=== PATIENT | female | born 1950 | race Caucasian/White ===

== ENCOUNTER → 2018-03-13 | Outpatient (CLI) | payer MEDICARE, OTHER ==
[~2018-03-13] MED LIST: ACET500 PO; ALBU90OI INH; ANORO ELLIPTA1 EACH INH; ASPI325 PO; BACL10 PO; Desyrel150 MG PO; Hair, Skin & N1 EACH PO; ROXICODONE5 MG PO; VENLAFAXINE HC150 MG PO
== END ==
LOC: LAB SHORT 17:40 → LAB EV 17:40
DX: N39.0 Urinary tract infection, site not specified (principal)
CPT/HCPCS: 87077; 87086; 87186

== ENCOUNTER → 2018-04-26 | Outpatient (CLI) | payer MEDICARE, OTHER | END | disposition home or self-care (01) | LOC: LAB SHORT 13:45 → LAB 13:45 | DX: L60.9 Nail disorder, unspecified (principal) | CPT/HCPCS: 87102 ==

== ENCOUNTER 2019-03-14 07:35 | Day surgery (SDC) | payer MEDICARE, OTHER ==
[~2019-03-14] VITALS: Ht 165.1 cm; Wt 53.2 kg
--- NOTE | 2019-03-14 08:39 | NUR ---
0810 Ambulatory in Day Surgery Surgical site prepped with 2% Chlorhexidine cloth wipe. History, Chart, Medications and Allergies reviewed before start of procedure.Lungs clear T/O to Auscultation. DECREASED BS L LOWER LUNG CURRENT EVERY DAY SMOKER, 1/2PPD, Patient confirms NPO status and agrees with scheduled surgery. Pre-Op teaching done. Pt verbalizes understanding. Patient reports completing Chlorhexadine shower X2 prior to admission to hospital.
--- NOTE | 2019-03-14 08:56 | NUR ---
MICHELLEN TO BILATERAL NARES.
--- NOTE | 2019-03-14 09:53 | NUR ---
UP TO BATHROOM TO VOID.
--- NOTE | 2019-03-14 16:31 | NUR ---
PERMISSION FOR CARE Patient gave nursing support worker permission to assist RN in providing care on 03.15.2019 from [phone]. Nicole Boles
--- NOTE | 2019-03-14 18:38 | NUR ---
SHIFT SUMMARY PT WAS VERY DROWSY POST OP, ALLOWED TO REST UNTIL DINNER. UP TO BATHROOM AND CHAIR FOR DINNER. PAIN WELL MANAGED. TOELRATING DIET. AQUACEL HAS NO DRAINAGE OR SHADOWING.
[2019-03-15 04:39] LABS: BASOPHILS ABSOLUTE AUTO 0.02 K/mm3 (0.00-0.23); BASOPHILS PERCENT AUTO 0 % (0-2); EOSINOPHILS ABSOLUTE AUTO 0.03 K/mm3 (0.00-0.68); EOSINOPHILS PERCENT AUTO 0 % (0-6); Hematocrit 39.7 % (33.0-51.0); Hemoglobin 13.3 g/dL (11.5-16.0); IMMATURE GRAN ABSOLUTE AUTO 0.05 K/mm3 (0.00-0.10); IMMATURE GRAN PERCENT AUTO 1 % (0-1); LYMPHOCYTES ABSOLUTE AUTO 1.98 K/mm3 (0.84-5.20); LYMPHOCYTES PERCENT AUTO 22 % (21-46); MONOCYTES PERCENT AUTO 9 % (4-13); Mean Corpuscular HGB 32.9 pg (26.0-34.0); Mean Corpuscular HGB Conc 33.5 g/dL (31.5-36.5); Mean Corpuscular Volume 98 fL (80-100); Mean Platelet Volume 8.9 fL (9.1-12.4); NEUTROPHILS ABSOLUTE AUTO 6.28 K/mm3 (1.96-9.15); NEUTROPHILS PERCENT AUTO 69 % (41-73); Platelet Count 262 K/mm3 (150-400); RDW Coefficient Variation 12.1 % (11.7-14.2); RDW Standard Deviation 44.2 fL (35.1-46.3); Red Blood Cell Count 4.04 M/mm3 (3.80-5.20); White Blood Cell Count 9.16 K/mm3 (4.00-11.30)
[2019-03-15 04:55] LABS: Anion Gap 5 mmol/L (6-16); Blood Urea Nitrogen 12 mg/dL (8-24); Bun/Creatinine Ratio 15.9 (12.0-20.0); CO2, Blood 28 mmol/L (21-32); Calcium, Blood 8.9 mg/dL (8.5-10.1); Chloride, Blood 107 mmol/L (98-108); Creatinine, Blood 0.76 mg/dL (0.40-1.00); Glomerular Filtration Rate >60 (60-); Glucose, Blood 104 mg/dL (70-99); Magnesium, Blood 1.9 mg/dL (1.6-2.4); Potassium, Blood 4.4 mmol/L (3.5-5.5); Sodium, Blood 140 mmol/L (136-145)
--- NOTE | 2019-03-15 06:18 | NUR ---
SHIFT SUMMARY PT A&O X4 T/O SHIFT. POD#1 L TKA; DRESSING CDI T/O SHIFT. PT DENIES N/T IN EXT. PAIN MANAGED PER EMAR. PAIN MANAGED PER EMAR. UP WITH FWW AND SBA TO TOILET AND AMBULATED IN [place]. CRYOTHERAPY TO L KNEE T/O SHIFT. SCD'S TO BLE'S. CALL LIGHT IN REACH; PT DEMONSTRATES USE.
[2019-03-15] MEDS ORDERED: ACETAMINOPHEN500 MG PO ×2 (09:49)
[2019-03-15] MEDS ORDERED: Ecotrin325 MG PO ×2 (09:50)
[2019-03-15] MEDS ORDERED: ROXICODONE5 MG PO ×2 (09:50)
--- NOTE | 2019-03-15 10:33 | NUR ---
DISCHARGE PT CLEARED THERAPY, PAIN WELL MANAGED, TOLERATING DIET, SCRIPT & DRSGS GIVEN, ICE MACHINE SENT WITH FAMILY.
== END 2019-03-15 10:35 | disposition home or self-care (01) ==
LOC: ORSCMMR 07:35 → ORD 10:30 → SURS 13:30 → ORSCMMR 13:30 → SURS 03-15 10:35
PROVIDERS: Orthopaedic Surgery
PROC: 0SRD0J9 Replacement of Left Knee Joint with Synthetic Substitute, Cemented, Open Approach (ICD-10-PCS; principal; 2019-03-14 10:30)
DX: M17.12 Unilateral primary osteoarthritis, left knee (principal); J44.9 Chronic obstructive pulmonary disease, unspecified; F17.210 Nicotine dependence, cigarettes, uncomplicated; Z79.899 Other long term (current) drug therapy
CPT/HCPCS: 36415; 73560-LT; 80048; 83735; 85025; 88300; 94760; 97110; 97161; 97530; C1713; C1776; J0171; J0690; J0735; J1170; J1885; J2250; J2370; J2405; J2765; J2795; J3010; J7120

== ENCOUNTER 2019-03-15 20:58 | Emergency (ER) | payer MEDICARE, OTHER ==
[~2019-03-15] VITALS: Ht 167.6 cm; Wt 54.0 kg
[~2019-03-15 20:58] MED LIST changes: +ACETAMINOPHEN500 MG PO; +Ecotrin325 MG PO
[2019-03-15 21:36] LABS: BASOPHILS ABSOLUTE AUTO 0.04 K/mm3 (0.00-0.23); BASOPHILS PERCENT AUTO 0 % (0-2); EOSINOPHILS ABSOLUTE AUTO 0.08 K/mm3 (0.00-0.68); EOSINOPHILS PERCENT AUTO 1 % (0-6); Hematocrit 37.9 % (33.0-51.0); Hemoglobin 12.9 g/dL (11.5-16.0); IMMATURE GRAN ABSOLUTE AUTO 0.02 K/mm3 (0.00-0.10); IMMATURE GRAN PERCENT AUTO 0 % (0-1); LYMPHOCYTES ABSOLUTE AUTO 2.47 K/mm3 (0.84-5.20); LYMPHOCYTES PERCENT AUTO 24 % (21-46); MONOCYTES ABSOLUTE AUTO 0.81 K/mm3 (0.16-1.47); MONOCYTES PERCENT AUTO 8 % (4-13); Mean Corpuscular HGB 32.7 pg (26.0-34.0); Mean Corpuscular Volume 96 fL (80-100); Mean Platelet Volume 9.3 fL (9.1-12.4); NEUTROPHILS ABSOLUTE AUTO 6.74 K/mm3 (1.96-9.15); NEUTROPHILS PERCENT AUTO 66 % (41-73); Platelet Count 291 K/mm3 (150-400); RDW Coefficient Variation 11.9 % (11.7-14.2); RDW Standard Deviation 41.8 fL (35.1-46.3); Red Blood Cell Count 3.95 M/mm3 (3.80-5.20); White Blood Cell Count 10.16 K/mm3 (4.00-11.30)
[2019-03-15 21:54] LABS: Alanine Aminotransfer (ALT/SGP 13 U/L (12-78); Albumin, Blood 3.2 g/dL (3.4-5.0); Albumin/Globulin Ratio 1.1 (0.8-1.8); Alk Phos 80 U/L (50-136); Anion Gap 6 mmol/L (6-16); Aspartate Aminotrans (AST/SGOT 20 U/L (12-37); Bilirubin, Total 0.5 mg/dL (0.1-1.0); Blood Urea Nitrogen 16 mg/dL (8-24); Bun/Creatinine Ratio 19.1 (12.0-20.0); CO2, Blood 28 mmol/L (21-32); Calcium, Blood 9.3 mg/dL (8.5-10.1); Chloride, Blood 101 mmol/L (98-108); Creatinine, Blood 0.84 mg/dL (0.40-1.00); Glomerular Filtration Rate >60 (60-); Glucose, Blood 134 mg/dL (70-99); Potassium, Blood 3.8 mmol/L (3.5-5.5); Sodium, Blood 135 mmol/L (136-145); Total Protein, Blood 6.2 g/dL (6.4-8.2)
== END 2019-03-16 00:02 | disposition home or self-care (01) ==
LOC: ER 20:58
PROVIDERS: Physician Assistant
DX: G89.18 Other acute postprocedural pain (principal); M25.562 Pain in left knee; F32.9 Major depressive disorder, single episode, unspecified; G89.29 Other chronic pain; M19.90 Unspecified osteoarthritis, unspecified site; F17.200 Nicotine dependence, unspecified, uncomplicated; Z88.8 Allergy status to other drugs, medicaments and biological substances; Z79.899 Other long term (current) drug therapy; Z96.652 Presence of left artificial knee joint
CPT/HCPCS: 36415; 80053; 83605; 84484; 85025; 93005; 93010; 96361; 96374; 96375; 99283-25; A9270-GY; J1885; J2270; J2405; J3010; J7030

== ENCOUNTER 2020-01-13 18:05 | Inpatient (IN) | payer MEDICARE, OTHER ==
[~2020-01-13] VITALS: Ht 167.6 cm; Wt 57.1 kg
[~2020-01-13 18:05] MED LIST changes: -ALBU90OI INH; -ANORO ELLIPTA1 EACH INH; -BACL10 PO; -Desyrel150 MG PO; -Hair, Skin & N1 EACH PO; +THERA1 EACH PO; -VENLAFAXINE HC150 MG PO
[2020-01-13] MEDS ORDERED: ANORO ELLIPTA1 EACH INH (21:15)
[2020-01-13] MEDS ORDERED: VENLAFAXINE HC150 MG PO (21:15)
[2020-01-13] MEDS ORDERED: LATA.005SO BOTHEYES (21:15)
[2020-01-13] MEDS ORDERED: TRAZ100 PO (21:15)
[2020-01-13] MEDS ORDERED: ALBU90OI INH (21:15)
[2020-01-13] MEDS ORDERED: BACL10 PO (21:15)
[2020-01-13] MEDS ORDERED: Ocuflox5 ML LEFTEYE (21:16)
[2020-01-13] MEDS ORDERED: KETOROLAC TROMET5 ML LEFTEYE (21:16)
[2020-01-13] MEDS ORDERED: PRED FORTE5 M1 LEFTEYE (21:17)
[2020-01-13] MEDS ORDERED: SODCHL3.5O LEFTEYE (21:18)
[2020-01-13 22:48] LABS: BASOPHILS ABSOLUTE AUTO 0.05 K/mm3 (0.00-0.23); BASOPHILS PERCENT AUTO 0 % (0-2); EOSINOPHILS ABSOLUTE AUTO 0.08 K/mm3 (0.00-0.68); EOSINOPHILS PERCENT AUTO 1 % (0-6); Hematocrit 38.2 % (33.0-51.0); Hemoglobin 13.2 g/dL (11.5-16.0); IMMATURE GRAN ABSOLUTE AUTO 0.05 K/mm3 (0.00-0.10); IMMATURE GRAN PERCENT AUTO 0 % (0-1); LYMPHOCYTES ABSOLUTE AUTO 2.43 K/mm3 (0.84-5.20); LYMPHOCYTES PERCENT AUTO 20 % (21-46); MONOCYTES ABSOLUTE AUTO 0.71 K/mm3 (0.16-1.47); MONOCYTES PERCENT AUTO 6 % (4-13); Mean Corpuscular HGB 33.2 pg (26.0-34.0); Mean Corpuscular HGB Conc 34.6 g/dL (31.5-36.5); Mean Corpuscular Volume 96 fL (80-100); Mean Platelet Volume 9.1 fL (9.1-12.4); NEUTROPHILS PERCENT AUTO 72 % (41-73); Platelet Count 264 K/mm3 (150-400); RDW Coefficient Variation 12.1 % (11.7-14.2); Red Blood Cell Count 3.98 M/mm3 (3.80-5.20); White Blood Cell Count 12.02 K/mm3 (4.00-11.30)
--- NOTE | 2020-01-13 22:54 | NUR ---
ARRIVES TO ROOM VIA GURNEY FROM ED. S/P GLF AT HOME RESULTING IN RIGHT FEMORAL NECK FX. PT ALERT ORIENTED, PAIN WITH MOVEMENT. REPOSITIONED IN BED FOR COMFORT. ALEXANDER DRAINING WELL. RIGHT LE WITH GOOD PULSES, SLIGHTLY SHORTENED. PT WILL BE MADE NPO AFTER MN, ORTHO CONSULT FOR AM. SURGICAL PACKET ON CHART.
[2020-01-13 23:02] LABS: Anion Gap 6 mmol/L (6-16); Blood Urea Nitrogen 11 mg/dL (8-24); Bun/Creatinine Ratio 17.6 (12.0-20.0); CO2, Blood 25 mmol/L (21-32); Calcium, Blood 8.7 mg/dL (8.5-10.1); Chloride, Blood 109 mmol/L (98-108); Creatinine, Blood 0.62 mg/dL (0.40-1.00); Glomerular Filtration Rate >60 (60-); Glucose, Blood 97 mg/dL (70-99); Potassium, Blood 4.2 mmol/L (3.5-5.5); Sodium, Blood 140 mmol/L (136-145)
[2020-01-14 05:17] LABS: BASOPHILS ABSOLUTE AUTO 0.04 K/mm3 (0.00-0.23); BASOPHILS PERCENT AUTO 1 % (0-2); EOSINOPHILS ABSOLUTE AUTO 0.13 K/mm3 (0.00-0.68); EOSINOPHILS PERCENT AUTO 2 % (0-6); Hematocrit 40.1 % (33.0-51.0); Hemoglobin 13.7 g/dL (11.5-16.0); IMMATURE GRAN ABSOLUTE AUTO 0.02 K/mm3 (0.00-0.10); IMMATURE GRAN PERCENT AUTO 0 % (0-1); LYMPHOCYTES ABSOLUTE AUTO 1.42 K/mm3 (0.84-5.20); LYMPHOCYTES PERCENT AUTO 19 % (21-46); MONOCYTES ABSOLUTE AUTO 0.58 K/mm3 (0.16-1.47); MONOCYTES PERCENT AUTO 8 % (4-13); Mean Corpuscular HGB 32.9 pg (26.0-34.0); Mean Corpuscular HGB Conc 34.2 g/dL (31.5-36.5); Mean Corpuscular Volume 96 fL (80-100); NEUTROPHILS ABSOLUTE AUTO 5.18 K/mm3 (1.96-9.15); NEUTROPHILS PERCENT AUTO 70 % (41-73); Platelet Count 242 K/mm3 (150-400); RDW Coefficient Variation 12.2 % (11.7-14.2); RDW Standard Deviation 43.1 fL (35.1-46.3); Red Blood Cell Count 4.17 M/mm3 (3.80-5.20); White Blood Cell Count 7.37 K/mm3 (4.00-11.30)
--- NOTE | 2020-01-14 05:20 | NUR ---
PT HAS DONE WELL SINCE ARRIVING TO FLOOR. SLEPT OFF/ON. PAIN MANAGED WITH DILAUDID. PT NPO, IVF INFUSING. NEW 18G PLACED IN LW. ORTHO CONSULT WAS CALLED. SURGICAL PACKET ON CHART AND BLOOD CONSENT SIGNED.
[2020-01-14 05:39] LABS: Anion Gap 5 mmol/L (6-16); Blood Urea Nitrogen 9 mg/dL (8-24); Bun/Creatinine Ratio 14.6 (12.0-20.0); CO2, Blood 26 mmol/L (21-32); Calcium, Blood 8.6 mg/dL (8.5-10.1); Chloride, Blood 109 mmol/L (98-108); Creatinine, Blood 0.62 mg/dL (0.40-1.00); Glomerular Filtration Rate >60 (60-); Glucose, Blood 119 mg/dL (70-99); Potassium, Blood 4.1 mmol/L (3.5-5.5); Sodium, Blood 140 mmol/L (136-145)
[2020-01-14 12:07] LABS: International Normalized Ratio 0.99; Prothrombin Time Results 10.6 Sec (9.7-11.5)
--- NOTE | 2020-01-14 15:44 | NUR ---
DOCUMENTATION BY DANIA QUARLES HAS BEEN REVIEWED AND THIS RN AGREES WITH HER DOCUMENTATION. THIS RN AGREES WITH SHIFT ASSESSMENT DOCUMENTED BY DANIA STUDENT NURSE.
--- NOTE | 2020-01-14 18:16 | NUR ---
SHIFT SUMMARY: PATIENT IS ALERT AND ORIENTED X4. SHE USES THE CALL LIGHT APPROPRIATELY IF SHE NEEDS SOMETHING. HER IS USUALLY AT BEDSIDE DURING THE DAY. SHE IS ON ONE LITER OF OXYGEN CURRENTLY BUT HER OXYGEN HAS BEEN IN THE HIGH 90'S THROUGHOUT THE SHIFT. WHEN WE GAVE HER PO PAIN MEDICATIONS IT WAS THE MOST EFFECTIVE AT MANAGING HER PAIN COMPARED TO IV PAIN MEDICATIONS. ANY MOVEMENT ON HER RIGHT HIP IS PAINFUL. HER VITALS ARE STABLE, AND HAS BEEN EATING AN ADEQUATE AMOUNT. PATIENT'S ALEXANDER HAS CONTAINED YELLOW URINE DURING THE SHIFT WITH NO COMPLICATIONS. PATIENT WILL BE CONTINUED TO BE MONITORED.
--- NOTE | 2020-01-14 18:34 | NUR ---
SHIFT SUMMARY PAIN HAS BEEN MANAGED WITH PO AND IV PAIN MEDICATION. SHE HAS BEEN ABLE TO REPOSITION HERSELF IN BED. PT WILL BE NPO AT MIDNIGHT FOR SURGERY TOMORROW. VSS. WILL MONITOR UNTIL REPORT TO ONCOMING RN.
--- NOTE | 2020-01-15 04:11 | NUR ---
SHIFT SUMMARY AA0X4, VSS. PLAN IS FOR PT TO GO TO SURGERY TODAY FOR R HIP FX. MEDICATED FOR PAIN WITH 1 NORCO 3 TIMES. PT STATES RELIEF. ALEXANDER CATH PATENT AND DRAINING, PT USING BEDPAN FOR BM. PT ON 3L O2 VIA NC SATS DROPPING TO 87-89 WHILE SLEEPING. NPO SINCE MIDNIGHT PER ORDERS.
--- NOTE | 2020-01-15 14:37 | NUR ---
PT ARRIVED TO THE UNIT AT APPROXIMATELY 1420. PT ORIENTED BUT DROWSY. SHE DENIES PAIN AT THIS TIME. DRESSING INTACT, SMALL RED SPOT OF DRAINAGE ON DRESSING. VSS. WILL CONTINUE TO MONITOR.
--- NOTE | 2020-01-15 17:47 | NUR ---
SHIFT SUMMARY PAIN HAS BEEN MANAGED WITH PO PAIN MEDICATION THIS SHIFT. PT IS DOING WELL POST OP. SHE HAS TOLERATED PO. VSS. FAMILY HAS BEEN AT BEDSIDE FOR SUPPORT. WILL MONITOR UNTIL REPORT TO ONCOMING RN.
--- NOTE | 2020-01-16 04:17 | NUR ---
SHIFT SUMMARY POD 1 R HIP PINNING AA0X4, VSS. PT HAS REPORTED MINIMAL PAIN DURING SHIFT. AQUACEL DRESSING INTACT AND SMALL AMOUNT DRY SANGUINOUS DRAINAGE. PT TOLERATING PO WELL HAS EATING REGULAR DIET DURING SHIFT. DENIES NAUSEA. PLAN TO REMOVE CATHETER BEFORE SHIFT CHANGE. PLANS TO WORK WITH PT AND OT DURING SHIFT.
--- NOTE | 2020-01-16 07:15 | NUR ---
RECVD REPORT FROM PREVIOUS SHIFT RN DOMINIC, PT SITTING UP IN BED A/0 X 4, PLEASANT/COOPERATIVE, RATES PAIN AT 3/10, BED IN LOWEST POSITION, BED RAILS UPX 2, CALL LIGHT WITHIN REACH
--- NOTE | 2020-01-16 11:01 | NUR ---
PHYSICAL THERAPY EVAL/TX PT, RECOMMENDING HOME HH, NOTIFED HALL CLERK
[2020-01-16] MEDS ORDERED: HYDR1TAB94 PO (12:21)
--- NOTE | 2020-01-16 12:33 | NUR ---
provided pt and with discharge teaching, printed material. peripheral IV removed WNL. pt states understanding of instructions. pt provided with written prescription. pt's will transport belongings to awaiting car. pt will be transported to vehicle via wheelchair
== END 2020-01-16 12:45 | disposition home or self-care (01) | DRG 482 ==
LOC: ER 18:05 → SURS 21:15
PROVIDERS: Orthopaedic Surgery; ADMIT Hospitalist
PROC: 0QS604Z Reposition Right Upper Femur with Internal Fixation Device, Open Approach (ICD-10-PCS; principal; 2020-01-15 10:30)
DX: S72.001D Fracture of unspecified part of neck of right femur, subsequent encounter for closed fracture with routine healing (principal); F17.210 Nicotine dependence, cigarettes, uncomplicated; F33.41 Major depressive disorder, recurrent, in partial remission; J41.0 Simple chronic bronchitis; W18.30XA Fall on same level, unspecified, initial encounter; Z96.642 Presence of left artificial hip joint; M62.838 Other muscle spasm
CPT/HCPCS: 36415; 51702; 71045; 73502; 80048; 85025; 85610; 85730; 93005; 93010; 94640; 94762; 96374-59; 96375-59; 96376-59; 97116; 97162; 97165; 97535; 99285-25; A9270-GY; J0690; J1100; J1170; J2370; J2405; J2704; J3010; J3480; J7120

== ENCOUNTER 2020-12-19 05:58 | Day surgery (SDC) | payer MEDICARE, OTHER ==
[~2020-12-19] VITALS: Ht 165.1 cm; Wt 53.7 kg
[~2020-12-19 05:58] MED LIST changes: +ALBU90OI INH; +ANORO ELLIPTA1 EACH INH; +BACL10 PO; +HYDR1TAB94 PO; +IBUP200 PO; +KETOROLAC TROMET5 ML LEFTEYE; +LATA.005SO BOTHEYES; +MULVITA PO; +Ocuflox5 ML LEFTEYE; +PRED FORTE5 M1 LEFTEYE; +SODCHL3.5O LEFTEYE; +TRAZ100 PO; +VENLAFAXINE HC150 MG PO
--- NOTE | 2020-12-19 07:50 | NUR ---
Ambulatory in Day SurgeryBair Paws warming gown applied. Surgical site prepped with 2% Chlorhexidine cloth wipe. History, Chart, Medications and Allergies reviewed before start of procedure.Lungs clear T/O to Auscultation. Patient confirms NPO status and agrees with scheduled surgery. Pre-Op teaching done. Pt verbalizes understanding. Patient States Post-Procedure ride home has been arranged. Patient reports completing Chlorhexadine shower X2 prior to admission to hospital.PATIENT DLAYED FOR 6 MINUTES FOR ROOM SET UP.
--- NOTE | 2020-12-19 19:32 | NUR ---
SHIFT SUMMARY PT CONTINUES TO BE VERY DROWSY SINCE ARRIVING TO UNIT. UNABLE TO WORK W/ THERAPY DUE TO DIZZINESS & NAUSEA WITH FIRST MOVEMENT THAT WAS UNRESOLVED WITH ZOFRAN, COOL WASHCLOTH, AND REST. REATTEMPT WITH THERAPY WAS STILL UNSUSCCESFUL 40 MINS LATER. AROUND 1800, PT WAS ABL ETO AMBULATE TO BATHROOM TO ATTEMPT TO VOID, UNSUCCESSFUL. UPEN RETURN TO BED, PT VOMITED & BECAME DIZZY AGAIN. REPOSITIONED IN BED THEN ANTIEMETIC GIVEN. BLADDER SCAN SHOWED 500. I/O CATH COMPLETED.
[2020-12-20 04:08] LABS: BASOPHILS ABSOLUTE AUTO 0.03 K/mm3 (0.00-0.23); BASOPHILS PERCENT AUTO 0 % (0-2); EOSINOPHILS ABSOLUTE AUTO 0.04 K/mm3 (0.00-0.68); EOSINOPHILS PERCENT AUTO 1 % (0-6); Hemoglobin 11.9 g/dL (11.5-16.0); IMMATURE GRAN ABSOLUTE AUTO 0.02 K/mm3 (0.00-0.10); IMMATURE GRAN PERCENT AUTO 0 % (0-1); LYMPHOCYTES ABSOLUTE AUTO 1.75 K/mm3 (0.84-5.20); LYMPHOCYTES PERCENT AUTO 25 % (21-46); MONOCYTES ABSOLUTE AUTO 0.85 K/mm3 (0.16-1.47); MONOCYTES PERCENT AUTO 12 % (4-13); Mean Corpuscular HGB 32.7 pg (26.0-34.0); Mean Corpuscular Volume 96 fL (80-100); Mean Platelet Volume 8.9 fL (9.1-12.4); NEUTROPHILS ABSOLUTE AUTO 4.32 K/mm3 (1.96-9.15); NEUTROPHILS PERCENT AUTO 62 % (41-73); Platelet Count 219 K/mm3 (150-400); RDW Coefficient Variation 12.4 % (11.7-14.2); RDW Standard Deviation 43.7 fL (35.1-46.3); Red Blood Cell Count 3.64 M/mm3 (3.80-5.20); White Blood Cell Count 7.01 K/mm3 (4.00-11.30)
[2020-12-20 04:24] LABS: Anion Gap 5 mmol/L (6-16); Blood Urea Nitrogen 14 mg/dL (8-24); Bun/Creatinine Ratio 19.6 (12.0-20.0); CO2, Blood 27 mmol/L (21-32); Calcium, Blood 8.5 mg/dL (8.5-10.1); Chloride, Blood 108 mmol/L (98-108); Creatinine, Blood 0.72 mg/dL (0.40-1.00); Glomerular Filtration Rate >60 (60-); Glucose, Blood 107 mg/dL (70-99); Magnesium, Blood 1.6 mg/dL (1.6-2.4); Sodium, Blood 140 mmol/L (136-145)
--- NOTE | 2020-12-20 04:52 | NUR ---
POD 1 S/P R GRICEL. PT VSS T/O NIGHT. DRESSING CDI. PT DENIED ANY N/T, CAP REFILL WNL. PAIN MGD PER EMAR W/REP RELIEF. PT HAD 1 UNMEASURED VOID; PVR BLADDER SCAN READ 35. IVF CONT DURING NIGHT, IV S/L THIS AM. PT AMADOU REG PO, DENIED N/V. PT UP OOB W/FWW+SBA, AMADOU WELL.
--- NOTE | 2020-12-20 08:32 | NUR ---
A&O X3, EATING BREAKFAST, DENIES ANY NEED FOR PAIN MEDS AT THIS TIME, RATES PAIN AT 4/10, REPORTS HAVING SOME DIZZINESS, MONITOR DIZZINESS, ASSIST PRN, WORK WITH PT/OT TODAY.
[2020-12-20] MEDS ORDERED: ACET500 PO (09:55)
[2020-12-20] MEDS ORDERED: Aspir 8181 MG PO (09:56)
[2020-12-20] MEDS ORDERED: OXYC5 PO (09:56)
--- NOTE | 2020-12-20 10:16 | NUR ---
OOB TO CHAIR, DC INSTRUCTIONS GIVEN, VERBALIZED UNDERSTANDING, IV DC'D CATH INTACT.
--- NOTE | 2020-12-20 11:25 | NUR ---
PT DC'D HOME WITH .
--- NOTE | 2020-12-20 12:11 | NUR ---
12/20/20 1211 Delores Ledezma VERIFICATIONS: EDIT CHART.
[2021-05-06] MEDS ORDERED: FLUTICASONE-SA1 EAC1 INH (13:31)
== END 2020-12-20 11:15 | disposition home or self-care (01) ==
LOC: ORSCMMR 05:58 → ORD 07:30 → SURS 10:57 → ORSCMMR 12-20 11:15
PROVIDERS: Orthopaedic Surgery
PROC: 0SR90JA Replacement of Right Hip Joint with Synthetic Substitute, Uncemented, Open Approach (ICD-10-PCS; principal; 2020-12-19 07:30)
DX: M16.11 Unilateral primary osteoarthritis, right hip (principal); J44.9 Chronic obstructive pulmonary disease, unspecified; Z79.899 Other long term (current) drug therapy
CPT/HCPCS: 36415; 72170; 80048; 83735; 85025; 88300; 97110; 97116; 97162; 97530; A9270; C1776; J0171; J0690; J0735; J1100; J1885; J2250; J2370; J2405; J2550; J2704; J2710; J2795; J3010; J7120

== ENCOUNTER 2021-05-13 07:30 | Inpatient (IN) | payer MEDICARE, OTHER ==
[~2021-05-13] VITALS: Ht 165.1 cm; Wt 53.0 kg
[~2021-05-13 07:30] MED LIST changes: +Aspir 8181 MG PO; +FLUTICASONE-SA1 EAC1 INH; +OXYC5 PO
--- NOTE | 2021-05-14 04:17 | NUR ---
SHIFT SUMMARY: PT POD#1 FOR A ROBOTIC RT HEMICOLECTOMY. VS WNL. O2 STABLE ON 3L VIA NC. LAP SITES C/D/I WITH GAUZE+TEGADERM. ABD MIDLY DISTENDED WITH TENDERNESS IN MID-LOWER ABD. PAIN BEING MANAGED WITH 25MCG OF FENTANYL AND TYLENOL PER EMAR. PT NOTED TO HAVE CREPITUS POSTOP TO UPPER ABD, CHEST, NECK AND BILATERAL CHEEKS+ARMS. CREPITUS HAS BEEN SLOWLY IMPROVING OVER NIGHT. CREPITUS NO LONGER NOTED TO BILATERAL CHEEKS. PT HAS HAD MINIMAL PO INTAKE. ONLY SMALL SIPS OF WATER WITH MEDS. IVF AND IV ABX INFUSING PER EMAR. ALEXANDER PATENT AND DRAINING YELLOW URINE. PT APPEARS TO BE RESTING MOST OF SHIFT.
[2021-05-14 04:52] LABS: BASOPHILS ABSOLUTE AUTO 0.01 K/mm3 (0.00-0.23); BASOPHILS PERCENT AUTO 0 % (0-2); EOSINOPHILS PERCENT AUTO 0 % (0-6); Hemoglobin 12.6 g/dL (11.5-16.0); IMMATURE GRAN ABSOLUTE AUTO 0.03 K/mm3 (0.00-0.10); IMMATURE GRAN PERCENT AUTO 0 % (0-1); LYMPHOCYTES ABSOLUTE AUTO 0.79 K/mm3 (0.84-5.20); LYMPHOCYTES PERCENT AUTO 7 % (21-46); MONOCYTES ABSOLUTE AUTO 0.67 K/mm3 (0.16-1.47); MONOCYTES PERCENT AUTO 6 % (4-13); Mean Corpuscular HGB 32.1 pg (26.0-34.0); Mean Corpuscular HGB Conc 34.1 g/dL (31.5-36.5); Mean Corpuscular Volume 94 fL (80-100); Mean Platelet Volume 9.5 fL (9.1-12.4); NEUTROPHILS PERCENT AUTO 86 % (41-73); Platelet Count 298 K/mm3 (150-400); RDW Coefficient Variation 12.8 % (11.7-14.2); RDW Standard Deviation 44.2 fL (35.1-46.3); Red Blood Cell Count 3.92 M/mm3 (3.80-5.20)
[2021-05-14 05:08] LABS: Anion Gap 6 mmol/L (6-16); Blood Urea Nitrogen 9 mg/dL (8-24); Bun/Creatinine Ratio 13.5 (12.0-20.0); CO2, Blood 27 mmol/L (21-32); Calcium, Blood 8.1 mg/dL (8.5-10.1); Chloride, Blood 103 mmol/L (98-108); Creatinine, Blood 0.67 mg/dL (0.40-1.00); Glomerular Filtration Rate >60 (60-); Glucose, Blood 128 mg/dL (70-99); Potassium, Blood 3.5 mmol/L (3.5-5.5); Sodium, Blood 136 mmol/L (136-145)
--- NOTE | 2021-05-14 07:05 | NUR ---
DR SOTOMAYOR ROUNDING ON PT. PT LYING IN BED, WAKENS EASILY. BED IN LOWEST POSITION, BED RAILS UP X 2, CALL LIGHT WITHIN REACH. PT IS A/O X 4, PLEASANT/COOPERATIVE. WHITEBOARD UPDATED
--- NOTE | 2021-05-14 15:39 | NUR ---
dr charles rounding on pt
--- NOTE | 2021-05-14 17:10 | NUR ---
shift summary: vss, no acute changes. Pt has been up in chair x 1, walked to hallway x 1, has voided following shaw catheter removal. pt has tolerated clear liquid diet in small amounts this shift. no flatus at this time. Pt rates pain at 7-8/10 before anesthesia, 5-6/10 following administration per MAR; received order change from MD to attempt to achieve better pain control. dressing remain d/i, no new drainage.
--- NOTE | 2021-05-15 04:01 | NUR ---
SHIFT SUMMARY: PT POD#2 FOR ROBOTIC R HEMICOLECTOMY. ACTIVE BT X4. PT DENIES PASSING FLATUS. AMBULATING TO BATHROOM PRN. VOIDING WELL. TOLERATING SIPS OF WATER THROUGHOUT NIGHT. PT DENIES N/V. PAIN WELL MANAGED THIS SHIFT WITH 10MG OXY Q4. NO CONCERNS AT THIS TIME.
--- NOTE | 2021-05-15 15:25 | NUR ---
SHIFT SUMMARY: POD 2 ROBOTIC RIGHT LJ CHOLECTOMY PATIENT IS ALERT AND ORIENTED X4. VS ARE WNL AND IS ON RA. PAIN IS MANAGED WITH 2 YOSEF'S AND RARELY FOR BREAKTHROUGH PAIN 25 MCG OF FENTANYL. PATIENTS 4 LAP SITES ON HER ABD ARE C/D/I. PATIENT IS TOLERATING PO INTAKE, VOIDING, AND NOW IS PASSING GAS. BOTH IV'S IN THE LEFT AND RIGHT ARM ARE WNL. SHE IS A SBA WITH GAIT BELT AND CANE FOR AMBULATION. SHE HAS AMBULATED IN THE HALLS AT LEAST ONCE TODAY. SHE TOLERATED IT WELL. PATIENT IS LAYING IN BED WITH CALL LIGHT IN REACH. DR. SOTOMAYOR SAID THE PLAN IS FOR HER TO STAY ONE MORE NIGHT TO POSSIBLY HAVE A BM BEFORE BEING DISCHARGED.
--- NOTE | 2021-05-16 04:42 | NUR ---
SHIFT SUMMARY POD#3 RIGHT HEMICOLECTOMY. AAOX4. DISCOMFORT CONTROLLED WITH 2 ROXICODONE Q4H + 25mcg FENTANYL X1 THIS SHIFT FOR BREAKTHROUGH. NO NAUSEA/EMESIS. ABD INCISIONS C/D/I. GOOD PO INTAKE + OUTPUT. BTX4 HYPERACTIVE, REPORTING FLATUS POST OP, NO BM. CONTINUE TO ENCOURAGE DEEP BREATHING + INCENTIVE SPIROMETRY USE. RESTING WELL THIS NOC SHIFT WITH CALL LIGHT IN REACH.
[2021-05-16] MEDS ORDERED: Percocet 5-3251 EACH PO (07:58)
--- NOTE | 2021-05-16 08:21 | NUR ---
DISCHARGE NOTE: PATIENT WAS EDUCATED ON DISCHARGE INSTRUCTIONS. SHE VERBALIZED UNDERSTANDING OF INSTRUCTIONS AND HAD NO FURTHER QUESTIONS. PATIENT IS ALERT AND ORIENTED X4. VS ARE WNL AND IS ON RA. PAIN IS MANAGED WITH 2 YOSEF'S. HER 4 STERI STRIP LAP SITES ON HER ABD ARE C/D/I. SHE IS TOLERATING PO INTAKE AND IS VOIDING WELL PASSING GAS. PATIENT IS GETTING DRESSED AND GATHERING HER PERSONAL ITEMS IN THE ROOM. HER WILL BE COMING TO PICK HER UP TO TAKE HER HOME. SHE HAS HER HARD PERSCRIPTION FOR HER NARCOTIC IN HER INSTRUCTION FOLDER. BOTH IV'S WERE TAKEN OUT AND WERE WNL. SHE WILL BE WHEELCHAIRED OUT TO HER HUSBANDS CAR ONCE HE IS HERE. CALL LIGHT IS WITHIN HER REACH UNTIL THEN.
== END 2021-05-16 09:07 | disposition home or self-care (01) | DRG 331 ==
LOC: SURS 11:54
PROVIDERS: ADMIT Surgery
PROC: 0DTJ4ZZ Resection of Appendix, Percutaneous Endoscopic Approach (ICD-10-PCS; 2021-05-13)
PROC: 8E0W4CZ Robotic Assisted Procedure of Trunk Region, Percutaneous Endoscopic Approach (ICD-10-PCS; 2021-05-13)
PROC: 0DTF4ZZ Resection of Right Large Intestine, Percutaneous Endoscopic Approach (ICD-10-PCS; principal; 2021-05-13 12:00)
DX: D12.0 Benign neoplasm of cecum (principal); D12.2 Benign neoplasm of ascending colon; Z91.048 Other nonmedicinal substance allergy status; D12.4 Benign neoplasm of descending colon; D12.3 Benign neoplasm of transverse colon; M19.90 Unspecified osteoarthritis, unspecified site; F41.9 Anxiety disorder, unspecified; F32.9 Major depressive disorder, single episode, unspecified; G89.29 Other chronic pain; J44.9 Chronic obstructive pulmonary disease, unspecified; E78.5 Hyperlipidemia, unspecified; H81.09 Meniere's disease, unspecified ear; H91.90 Unspecified hearing loss, unspecified ear; Z98.890 Other specified postprocedural states; Z98.51 Tubal ligation status; Z90.711 Acquired absence of uterus with remaining cervical stump; Z79.899 Other long term (current) drug therapy
CPT/HCPCS: 36415; 80048; 80053; 85025; 86850; 86900; 86901; 88307; 94640; 94760; 94762; A9270; J0690; J1100; J1650; J1885; J2250; J2405; J2704; J3010; J7120

== ENCOUNTER → 2025-08-15 | Outpatient (CLI) | payer MEDICARE, OTHER ==
[~2025-08-15] MED LIST changes: +Percocet 5-3251 EACH PO
[2025-08-15 19:51] LABS: BASOPHILS ABSOLUTE AUTO 0.06 K/mm3 (0.00-0.23); BASOPHILS PERCENT AUTO 1 % (0-2); EOSINOPHILS ABSOLUTE AUTO 0.05 K/mm3 (0.00-0.68); EOSINOPHILS PERCENT AUTO 1 % (0-6); Hematocrit 41.3 % (33.0-51.0); Hemoglobin 14.8 g/dL (11.5-16.0); IMMATURE GRAN ABSOLUTE AUTO 0.02 K/mm3 (0.00-0.10); IMMATURE GRAN PERCENT AUTO 0 % (0-1); LYMPHOCYTES ABSOLUTE AUTO 1.71 K/mm3 (0.84-5.20); LYMPHOCYTES PERCENT AUTO 25 % (21-46); MONOCYTES ABSOLUTE AUTO 0.50 K/mm3 (0.16-1.47); MONOCYTES PERCENT AUTO 7 % (4-13); Mean Corpuscular HGB Conc 35.8 g/dL (31.5-36.5); Mean Corpuscular Volume 97 fL (80-100); NEUTROPHILS ABSOLUTE AUTO 4.63 K/mm3 (1.96-9.15); NEUTROPHILS PERCENT AUTO 66 % (41-73); NRBC ABSOLUTE 0.00 K/mm3 (0.00-0.02); NRBC Auto 0.0 /100 WBC (0.0-0.2); Platelet Count 358 K/mm3 (150-400); RDW Coefficient Variation 12.7 % (11.7-14.2); RDW Standard Deviation 43.9 fL (35.1-46.3)
[2025-08-15 23:58] LABS: C-REACTIVE PROTEIN, EXT RANGE <0.290 mg/dL (0.000-0.300)
[2025-08-16 00:10] LABS: Alanine Aminotransfer (ALT/SGP 24 U/L (12-78); Albumin, Blood 3.7 g/dL (3.4-5.0); Albumin/Globulin Ratio 1.1 (0.8-1.8); Anion Gap 9 mmol/L (3-11); Aspartate Aminotrans (AST/SGOT 24 U/L (12-37); Bilirubin, Total 0.4 mg/dL (0.1-1.0); Blood Urea Nitrogen 13 mg/dL (8-24); CO2, Blood 26 mmol/L (21-32); Calcium, Blood 9.8 mg/dL (8.5-10.1); Chloride, Blood 102 mmol/L (98-108); Creatinine, Blood 0.87 mg/dL (0.40-1.00); Globulin, Blood 3.5 g/dL (2.2-4.0); Glucose, Blood 101 mg/dL (70-99); Potassium, Blood 4.4 mmol/L (3.5-5.5); Sodium, Blood 133 mmol/L (136-145); Total Protein, Blood 7.2 g/dL (6.4-8.2)
== END | disposition home or self-care (01) ==
LOC: LAB SHORT 17:00 → LAB 17:00
PROVIDERS: Nurse Practitioner Family
DX: K52.9 Noninfective gastroenteritis and colitis, unspecified (principal)
CPT/HCPCS: 80053; 85025; 86140

== ENCOUNTER → 2025-08-16 | Outpatient (CLI) | payer MEDICARE, OTHER ==
[2025-08-16 19:08] LABS: Campylobacter Sp Not Detected (NOT DETECT); Enteroaggregative E. coli-EAEC Not Detected (NOT DETECT); Salmonella Sp Not Detected (NOT DETECT); Vibrio Sp Not Detected (NOT DETECT)
[2025-08-16 19:09] LABS: E. Coli O157 Not Detected (NOT DETECT); Enteropathogenic E. coli-EPEC Not Detected (NOT DETECT); Enterotoxigenic E. coli-ETEC Not Detected (NOT DETECT); Shiga Toxin-prod E. coli-STEC Not Detected (NOT DETECT); Shigella/Enteroin E. coli-EIEC Not Detected (NOT DETECT)
[2025-08-17 12:24] LABS: Stool Occult Bld Immuno 1 Negative (NEGATIVE)
[2025-08-20 15:13] LABS: CALPROTECTIN,FECAL 17 ug/g (<=49)
== END | disposition home or self-care (01) ==
LOC: LAB 14:12 → LAB SHORT 14:12
PROVIDERS: Nurse Practitioner Family
DX: K52.9 Noninfective gastroenteritis and colitis, unspecified (principal)
CPT/HCPCS: 82274; 83993; 87507

== ENCOUNTER → 2025-09-06 | Outpatient (CLI) | payer MEDICARE, OTHER | END | disposition home or self-care (01) | LOC: LAB 14:35 → LAB SHORT 14:35 | DX: R19.7 Diarrhea, unspecified (principal) | CPT/HCPCS: 87338 ==

== ENCOUNTER 2025-10-17 12:36 | Emergency (ER) | payer MEDICARE, OTHER ==
[~2025-10-17] VITALS: Ht 167.6 cm; Wt 49.0 kg
[2025-10-17 12:49] VITALS: BP 116/8
[2025-10-17 13:28] LABS: BASOPHILS ABSOLUTE AUTO 0.04 K/mm3 (0.00-0.23); BASOPHILS PERCENT AUTO 0 % (0-2); EOSINOPHILS ABSOLUTE AUTO 0.08 K/mm3 (0.00-0.68); EOSINOPHILS PERCENT AUTO 1 % (0-6); Hematocrit 40.5 % (33.0-51.0); Hemoglobin 14.1 g/dL (11.5-16.0); IMMATURE GRAN ABSOLUTE AUTO 0.02 K/mm3 (0.00-0.10); IMMATURE GRAN PERCENT AUTO 0 % (0-1); LYMPHOCYTES ABSOLUTE AUTO 2.26 K/mm3 (0.84-5.20); LYMPHOCYTES PERCENT AUTO 25 % (21-46); MONOCYTES ABSOLUTE AUTO 0.61 K/mm3 (0.16-1.47); MONOCYTES PERCENT AUTO 7 % (4-13); Mean Corpuscular HGB Conc 34.8 g/dL (31.5-36.5); Mean Corpuscular Volume 92 fL (80-100); NEUTROPHILS ABSOLUTE AUTO 6.14 K/mm3 (1.96-9.15); NEUTROPHILS PERCENT AUTO 67 % (41-73); NRBC ABSOLUTE 0.00 K/mm3 (0.00-0.02); NRBC Auto 0.0 /100 WBC (0.0-0.2); Platelet Count 287 K/mm3 (150-400); RDW Coefficient Variation 11.8 % (11.7-14.2); RDW Standard Deviation 39.8 fL (35.1-46.3)
[2025-10-17 13:48] LABS: Alanine Aminotransfer (ALT/SGP 15.0 U/L (12-78); Albumin, Blood 2.8 g/dL (3.4-5.0); Albumin/Globulin Ratio 0.8 (0.8-1.8); Anion Gap 10.0 mmol/L (3-11); Aspartate Aminotrans (AST/SGOT 13.0 U/L (12-37); Bilirubin, Total 0.6 mg/dL (0.1-1.0); Blood Urea Nitrogen 9.0 mg/dL (8-24); CO2, Blood 23.0 mmol/L (21-32); Calcium, Blood 9.0 mg/dL (8.5-10.1); Chloride, Blood 105.0 mmol/L (98-108); Creatinine, Blood 0.64 mg/dL (0.40-1.00); Globulin, Blood 3.7 g/dL (2.2-4.0); Glucose, Blood 96.0 mg/dL (70-99); Potassium, Blood 3.8 mmol/L (3.5-5.5); Sodium, Blood 134.0 mmol/L (136-145); Total Protein, Blood 6.5 g/dL (6.4-8.2)
[2025-10-17 15:26] LABS: Source, Urine Clean Catch
[2025-10-17 15:39] LABS: Color, Urine Yellow (P-Yellow); Glucose Qualitative, Urine Neg (Neg); Ketones, Urine Neg (Neg); Leukocyte Esterase, Urine 1+ (Neg); Protein, Urine 2+ (Neg); Specific Gravity, Urine 1.020 (1.003-1.022); Urobilinogen, Urine 2+ (Normal)
[2025-10-17 15:48] LABS: Bilirubin, Urine 1+ (Neg)
[2025-10-17 15:49] LABS: Red Blood Cells, Urine 0-2 /hpf (0-2)
== END 2025-10-17 17:15 | disposition home or self-care (01) ==
LOC: ER 12:36
PROVIDERS: Physician Assistant
DX: R10.9 Unspecified abdominal pain (principal); G89.29 Other chronic pain; R63.4 Abnormal weight loss; F17.200 Nicotine dependence, unspecified, uncomplicated; Z79.899 Other long term (current) drug therapy; Z88.8 Allergy status to other drugs, medicaments and biological substances
CPT/HCPCS: 80053; 81001; 83690; 84484; 85025; 87086; 93005; 93010; 99284-25

== ENCOUNTER → 2025-10-30 | Outpatient (CLI) | payer MEDICARE, OTHER ==
[2025-11-02 13:45] LABS: FAT, FECAL - NEUTRAL Normal (Normal); FAT, FECAL - SPLIT Normal (Normal)
[2025-11-03 23:02] LABS: OVA AND PARASITE,FECAL INTERP Negative (Negative)
[2025-11-05 15:11] LABS: PANCREATIC ELASTASE,FECAL >800 ug/g (>=100)
== END ==
LOC: LAB 16:00 → LAB SHORT 16:00 → LAB FUT 10-26 16:00
PROVIDERS: Internal Medicine
DX: K52.9 Noninfective gastroenteritis and colitis, unspecified (principal)
CPT/HCPCS: 82653; 82705; 87177; 87209